=== PATIENT | male | born 1955 | race Caucasian/White ===

== ENCOUNTER 2016-10-27 06:34 | Day surgery (SDC) | payer BC ==
[2016-10-20 09:45] LABS: BASOPHILS 0.2 %; BASOPHILS ABSOLUTE 0.01 10/3/uL (0.0-0.16); EOSINOPHILS 0.9 %; EOSINOPHILS ABSOLUTE 0.04 10/3/uL (0.0-0.53); HEMATOCRIT 46.5 % (40.0-51.0); IMMATURE GRANULOCYTES 0.2 %; IMMATURE GRANULOCYTES ABSOLUTE 0.01 10/3/uL (0.0-0.11); LYMPHOCYTES 23.1 %; LYMPHOCYTES ABSOLUTE 1.05 10/3/uL (0.67-4.30); MEAN CORPUS HGB CONC 34.4 g/dL (32.0-36.0); MEAN PLATELET VOLUME 10.2 fL (9.2-13.0); MONOCYTES 10.8 %; MONOCYTES ABSOLUTE 0.49 10/3/uL (0.21-1.20); NEUTROPHILS 64.8 %; NEUTROPHILS ABSOLUTE 2.95 10/3/uL (2.02-8.40); PLATELET COUNT 157 10/3/uL (150-400); RBC DISTRIBUTION WIDTH 13.2 % (12.0-16.0); WHITE BLOOD CELLS 4.6 10/3/uL (4.5-10.5)
[2016-10-20 09:46] LABS: MANUAL DIFF NO %
[2016-10-20 09:55] LABS: BUN (BLOOD UREA NITROGEN) 15 MG/DL (6-23); CALCIUM, SERUM 8.7 MG/DL (8.5-10.4); CHLORIDE, SERUM 107 MMOL/L (96-112); CO2 (CARBON DIOXIDE) 30 MMOL/L (24-34); CREATININE 0.93 MG/DL (0.70-1.30); GFR AFRICAN AMERICAN 102 ML/MIN (>=60); GFR NON AFRICAN AMERICAN 88 ML/MIN (>=60); GLUCOSE, SERUM 122 MG/DL (60-99); POTASSIUM, SERUM 4.3 MMOL/L (3.5-5.3); SODIUM, SERUM 139 MMOL/L (135-148)
--- NOTE | ~2016-10-27 | OP ---
Record Of Operation [facility] [address] [place]. [address] NAME: MONTSE RUSSELL : 55 STATUS : [facility]#: [id number] AGE: 61 ADM/REG DATE : 10/27/16 MR#: [id number] REPORT SERV DATE: 10/28/16 DICTATED BY: WALTER KEITH DATE: 10/27/16 REPORT STATUS : Draft TRANSCRIBED BY: MODL DATE: 10/27/16 DATE OF PROCEDURE: 10/27/2016 PREOPERATIVE DIAGNOSIS: Incisional hernia, incarcerated. POSTOPERATIVE DIAGNOSIS: Incisional hernia, incarcerated. PROCEDURE: Open repair of incarcerated incisional hernia with mesh. SURGEON: Walter Keith M.D. CHIEF RESIDENT: Taz Estes MD. ANESTHETIC: General. IV FLUIDS: Approximate 1 L. ESTIMATED BLOOD LOSS: 20 mL. COMPLICATIONS: None. COUNTS: Correct. SPECIMEN: None. DESCRIPTION OF PROCEDURE: The patient was brought to the operating room and placed supine on the operating room table. Anesthetic was administered. Endotracheal intubation was achieved. The abdomen was prepped and draped in a standard sterile fashion. A time-out was held. An incision was made through the prior scar. There was a transversely oriented incision, centered over the midline above the umbilicus. Electrocautery was used to dissect down to the level of the hernia sac. The hernia sac was entered and the fascial edges were cleared above and below. The hernia had been incarcerated with omentum. There was no bowel strangulation. After the edges of the defect were identified, further defects. There was a small umbilical defect inferiorly and two other moderate-sized defect, one on the right lateral aspect and on the superolateral aspect was pulled down from these. The umbilical hernia was repaired with single interrupted 0 Nurolon in a [id number] fashion. Next, a 6 cm diameter piece of Parietex mesh was used to repair the hernia defect and overlapped the lateral hernias. This was achieved in an underlay technique using 0 Nurolon at the outer edges at approximately 6 points. The central tags to the Parietex mesh were secured to the inferior and superior aspect of the fascia. The subcutaneous tissue was closed 3-0 Vicryl after irrigation. The skin was reapproximated with 4-0 Monocryl in subcuticular fashion and the sterile dressing applied. The patient tolerated the procedure well, was extubated, and transferred to the recovery area in stable condition. DICTATED BY: Taz Estes MD Record Of [address] [address] NAME: MONTSE RUSSELL : 55 STATUS : [facility] PAT#: [id number] AGE: 61 ADM/REG DATE : 10/27/16 MR#: [id number] REPORT SERV DATE: 10/28/16 DICTATED BY: WALTER KEITH DATE: 10/27/16 REPORT STATUS : Draft TRANSCRIBED BY: BREANA DATE: 10/27/16 ND/BREANA Walter Keith M.D. / [id number] CC: Darrius Nagel D.O.
[~2016-10-27 06:34] MED LIST: C5 PO; CARTIA XT120 MG/24 PO; CARTIA XT240 MG/24 PO; FLECAINIDE150 MG PO; HALF81 PO; LIPITOR20 PO; MULTIPLE VIT PO; NEXIUM20 M1 PO; NEXIUM40 PO; PERCOCET1 TA2 PO; PRADAXA150 MG PO; TAMBOCOR PO; ZYRTEC ALLGY10 MG PO
== END 2016-10-27 14:38 | disposition home or self-care (01) ==
LOC: SDC 06:34
PROVIDERS: Specialist
PROC: 0WUF0JZ Supplement Abdominal Wall with Synthetic Substitute, Open Approach (ICD-10-PCS; principal; 2016-10-27 08:30)
DX: K42.0 Umbilical hernia with obstruction, without gangrene (principal); I10 Essential (primary) hypertension; E78.00 Pure hypercholesterolemia, unspecified; G47.33 Obstructive sleep apnea (adult) (pediatric); M19.90 Unspecified osteoarthritis, unspecified site; E66.9 Obesity, unspecified; Z68.35 Body mass index [BMI] 35.0-35.9, adult; Z99.89 Dependence on other enabling machines and devices; Z85.46 Personal history of malignant neoplasm of prostate; Z88.2 Allergy status to sulfonamides; Z92.3 Personal history of irradiation; Z86.010 Personal history of colon polyps; Z96.651 Presence of right artificial knee joint; Z90.49 Acquired absence of other specified parts of digestive tract; Z90.79 Acquired absence of other genital organ(s); Z79.82 Long term (current) use of aspirin; Z79.899 Other long term (current) drug therapy; Z98.890 Other specified postprocedural states
CPT/HCPCS: 80048; 85025; 87641; 93005; A9270-GY; C1781; J0690; J1170; J1885; J2250; J2405; J2710; J3010